=== PATIENT | female | born 1990 | race Caucasian/White ===

== ENCOUNTER 2017-10-01 10:00 | Inpatient (IN) | payer BC ==
[~2017-10-01] VITALS: Ht 160 cm; Wt 87.3 kg
[~2017-10-01 10:00] MED LIST: BACITRACIN 50,000 UNIT ONE; BUPIVACAINE/PF 0.5% ONE; DIPH25CA61 PO; EPINEPHRINE 1 MG/ML, 1ML ONE; IBUP-1223 PO; MELA1TAB15 PO; MORP-52 PO; OXYC-302 PO; OXYC-307 PO; OXYC1TAB9 PO; SENN-25 PO; THROMBIN 5,000 UNIT VIAL TP ONE
[2017-10-01] MEDS ORDERED: LIDOCAINE 1%, 2ML SQ PRN (10:30)
[2017-10-01] MEDS ORDERED: LACTATED RINGERS 1,000 ML IV SCH (10:30)
[2017-10-01 10:31] VITALS: BP 130/76
[2017-10-01] MEDS ORDERED: LIDOCAINE 1%, 2ML ONE (10:39)
[2017-10-01 10:45] LABS: HCG UR LOT HCG7030192
[2017-10-01 10:50] LABS: HCG UR OBC PASS
[2017-10-01] MEDS ORDERED: MIDAZOLAM 1 MG/ML, 2ML ONE (11:21)
[2017-10-01] MEDS ORDERED: FENTANYL PF 100 MCG/2ML ONE ×3 (11:22→14:56)
[2017-10-01] MEDS ORDERED: ROCURONIUM 10MG/ML,5ML ONE (11:58)
[2017-10-01] MEDS ORDERED: SUCCINYLCHOLINE 20 MG/ML, 10ML ONE (12:49)
[2017-10-01] MEDS ORDERED: NEOSTIGMINE 1 MG/ML, 10ML ONE (12:49)
[2017-10-01] MEDS ORDERED: CEFAZOLIN 1,000 MG ONE (12:49)
[2017-10-01] MEDS ORDERED: GLYCOPYRROLATE 0.2MG/1ML, 5ML ONE (12:49)
[2017-10-01] MEDS ORDERED: ROCURONIUM 10 MG/ML ONE (12:49)
[2017-10-01] MEDS ORDERED: PROPOFOL 10 MG/ML, 20ML ONE (12:49)
[2017-10-01] MEDS ORDERED: ONDANSETRON 2MG/ML, 2ML ONE (12:49)
[2017-10-01] MEDS ORDERED: DEXAMETHASONE 4 MG/ML, 1ML ONE (12:49)
[2017-10-01] MEDS ORDERED: ONDANSETRON 2MG/ML, 2ML IVPush PRN (13:00)
[2017-10-01] MEDS ORDERED: hydrALAzine 20 MG/ML, 1ML IV PRN (13:00)
[2017-10-01] MEDS ORDERED: HYDROcodone/APAP 7.5-325MG/15ML UDC PO PRN (13:00)
[2017-10-01] MEDS ORDERED: METOPROLOL 1 MG/ML, 5ML IV PRN (13:00)
[2017-10-01] MEDS ORDERED: OXYcodone 5 MG/5 ML ORAL.SOL UDC PO PRN (13:00)
[2017-10-01] MEDS ORDERED: MEPERIDINE/PF 25MG/0.5ML IVPush PRN (13:00)
[2017-10-01] MEDS ORDERED: DIAZEPAM 5 MG/ML, 2ML IVPush PRN (13:00)
[2017-10-01] MEDS ORDERED: MIDAZOLAM 1 MG/ML, 2ML IV PRN (13:00)
[2017-10-01] MEDS ORDERED: EPHEDRINE 50 MG/ML, 1ML IVPush PRN (13:00)
[2017-10-01] MEDS ORDERED: PROMETHAZINE 25 MG/ML, 1ML IV PRN (13:00)
[2017-10-01] MEDS ORDERED: LABETALOL 5MG/ML, 20ML IV PRN (13:00)
[2017-10-01] MEDS ORDERED: ALBUTEROL SULFATE 2.5 MG/3 ML NPPB PRN (13:00)
[2017-10-01] MEDS ORDERED: ACETAMINOPHEN 325 MG TABLET PO PRN (13:00)
[2017-10-01] MEDS ORDERED: VANCOMYCIN 1,000 MG ONE (13:33)
[2017-10-01] MEDS ORDERED: OXYcodone 5 MG/5 ML ORAL.SOL UDC ONE (14:42)
[2017-10-01] MEDS ORDERED: MEPERIDINE/PF 25MG/0.5ML ONE (14:42)
[2017-10-01] MEDS ORDERED: HYDROmorphone 1 MG/ML, 1ML ONE (14:42)
[2017-10-01] MEDS: HYDROmorphone 1 MG/ML, 1ML IV PRN ×2 (14:49→14:50)
[2017-10-01] MEDS: FENTANYL PF 100 MCG/2ML IV PRN ×2 (15:00→15:11)
[2017-10-01] MEDS ORDERED: HYDROmorphone 2MG TABLET PO PRN (16:30)
[2017-10-01] MEDS ORDERED: BISACODYL 10 MG SUPP PR PRN (17:00)
[2017-10-01] MEDS ORDERED: ONDANSETRON 2MG/ML, 2ML IV PRN (17:00)
[2017-10-01] MEDS ORDERED: PROMETHAZINE 25 MG/ML, 1ML IM PRN (17:00)
[2017-10-01] MEDS ORDERED: METHOCARBAMOL 750 MG TABLET PO PRN (17:00)
[2017-10-01] MEDS ORDERED: DIPHENHYDRAMINE 50 MG/ML, 1ML IM PRN (17:00)
[2017-10-01] MEDS: NS + 20MEQ KCL 1,000 ML IV SCH ×2 (17:00→19:23)
[2017-10-01] MEDS ORDERED: HYDROcodone/APAP 5/325 TABLET PO PRN (17:00)
[2017-10-01] MEDS ORDERED: DIAZEPAM 5 MG TABLET PO PRN (17:00)
[2017-10-01] MEDS ORDERED: MAGNESIUM HYDROXIDE 8%, 30ML UDC PO PRN (17:00)
[2017-10-01] MEDS ORDERED: DIPHENHYDRAMINE 50 MG/ML, 1ML IVPush PRN (17:00)
[2017-10-01] MEDS ORDERED: DIAZEPAM 5 MG/ML, 2ML IV PRN (17:00)
[2017-10-01] MEDS ORDERED: DIPHENHYDRAMINE 50 MG CAPSULE PO PRN (17:00)
[2017-10-01] MEDS ORDERED: OXYcodone/APAP 5/325MG TABLET PO PRN (17:00)
[2017-10-01] MEDS: HYDROmorphone 2 MG/ML, 1ML IM PRN ×2 (17:07→23:45)
[2017-10-01] MEDS: CEFAZOLIN PMX 1GM/50ML 50 ML IVPB SCH (19:23)
[2017-10-01 20:02] VITALS: BP 110/55
[2017-10-01] MEDS ORDERED: ZOLPIDEM 5MG TABLET PO PRN (21:00)
[2017-10-01] MEDS ORDERED: DIAZEPAM 5 MG/ML, 10ML VIAL IVPush PRN (23:30)
[2017-10-02 00:12] VITALS: BP 108/57
[2017-10-02] MEDS: CEFAZOLIN PMX 1GM/50ML 50 ML IVPB SCH (03:53)
[2017-10-02 04:52] VITALS: BP 105/68
[2017-10-02] MEDS: HYDROmorphone 2 MG/ML, 1ML IM PRN (06:31)
[2017-10-02 08:02] VITALS: BP 105/59
[2017-10-02] MEDS ORDERED: SENNA/DOCUSATE TABLET PO SCH ×2 (09:00)
[2017-10-02] MEDS ORDERED: METHOCARBAMOL 750 MG TABLET PO SCH (09:00)
[2017-10-02] MEDS: OXYcodone/APAP 10/325MG TABLET PO PRN ×2 (09:29→13:25)
[2017-10-02] MEDS ORDERED: PNEUMOCOCCAL 23 VACCINE IM-VACC ONE (13:30)
[2017-10-02] MEDS ORDERED: FLU VACC QS2017-18 (36MOS+) UP/PF 0.5 ML IM-VACC ONE (13:30)
[2017-10-02 15:17] VITALS: BP 121/56
[2017-10-02] MEDS ORDERED: MORP-52 PO (15:54)
[2017-10-02] MEDS ORDERED: OXYC1TAB9 PO (15:55)
[2017-10-02] MEDS ORDERED: METH750T2 PO (16:01)
== END 2017-10-02 16:16 | disposition home or self-care (01) | DRG 460 ==
LOC: OUT 10:00 → EDSTATUS 13:30 → 4NOR 16:21 → OUT 16:25 → 4NOR 16:26 → DCLOUNGE 10-02 16:06
PROVIDERS: ADMIT Neurological Surgery; ATTEND Neurological Surgery
PROC: 0SG00AJ Fusion of Lumbar Vertebral Joint with Interbody Fusion Device, Posterior Approach, Anterior Column, Open Approach (ICD-10-PCS; principal; 2017-10-01 13:30)
DX: M48.061 Spinal stenosis, lumbar region without neurogenic claudication (principal)
CPT/HCPCS: 72100; 81025; 90686; 90732; C1713; J0171; J0690; J1100; J1170; J2175; J2250; J2270; J2405; J2550; J2704; J2710; J3010; J3360; J3370; J3480; J3490; C1762; J0330; J7120